=== PATIENT | female | born 1995 | race Caucasian/White ===

== ENCOUNTER 2017-07-14 05:20 | Inpatient (IN) | END 2017-07-17 14:00 | disposition home or self-care (01) | DRG 775 ==

== ENCOUNTER 2018-05-28 16:38 | Emergency (ER) | payer MEDICAID ==
[~2018-05-28] VITALS: Ht 152.4 cm; Wt 72.0 kg
[~2018-05-28 16:38] MED LIST: PREN-19 PO
[2018-05-28 16:39] VITALS: BP 127/90; PULSE 110; RESP 16; Ht 152.4 cm; Wt 72.0 kg
[2018-05-28] MEDS ORDERED: PRED20TA PO (18:10)
[2018-05-28] MEDS ORDERED: ACYC400T2 PO (18:10)
--- NOTE | 2018-05-28 18:14 | ERD ---
ER Documentation Chief Complaint Chief Complaint RT SIDE OF FACE NUMBNESS CANNOT COMPLETELY CLOSE RT EYE. HPI Very pleasant 23-year-old female with no past medical history presents emergency room 24 hours of symptoms of right facial droop. The patient has a facial paralysis on the right side of her face including the forehead. The patient has loss of taste sensation to the right side of her tongue. Patient denies any headache or vision changes, no recent travel or insect bites. She denies any slurred speech or motor weakness, no ataxic gait. ROS All systems reviewed and are negative except as per history of present illness. Medications Home Meds Active Scripts Prednisone* (Prednisone*) 20 Mg Tab, 60 MG PO DAILY for 7 Days, TAB Prov:FRANNIE CASTELLANO MD 05/28/18 Acyclovir* (Acyclovir*) 400 Mg Tablet, 400 MG PO 5 TIMES DAILY for 10 Days, TAB Prov:FRANNIE CASTELLANO MD 05/28/18 Reported Medications Vit #76/Iron,Carb/FA (Prenatabs Rx Tablet) 1 Each Tablet, 1 EACH PO DAILY, TAB 07/14/17 Allergies Allergies: Coded Allergies: No Known Allergy (Unverified , 07/14/17) PMhx/Soc Medical and Surgical Hx: pt denies Medical Hx, pt denies Surgical Hx Hx Neurological Disorder: Yes (RT SIDE OF FACE NUMBNESS A&OX4. NEURO INTACT) Hx Alcohol Use: No Hx Substance Use: No Hx Tobacco Use: No Smoking Status: Never smoker FmHx Family History: No diabetes Physical Exam Vitals Vital Signs Date Temp Pulse Resp B/P (MAP) Pulse Ox O2 O2 Flow FiO2 Time Delivery Rate 05/28/18 98.8 110 16 127/90 99 16:39 (102) Physical Exam General: Well developed, well nourished, no acute distress Head: Normocephalic, atraumatic. Eyes: Pupils equally reactive, EOM intact ENT: Moist mucous membranes Neck: Supple, no lymphadenopathy Respiratory: Lungs clear bilaterally, no distress Cardiovascular: RRR, no murmurs, rubs, or gallops Abdominal: Soft, non-tender, non-distended, no peritoneal signs : Deferred MSK: No edema, no unilateral swelling, 5/5 strength Neurologic: The patient has a right-sided facial droop including the forehead. She is unable to fully close her right eye. Patient sensation appears to be intact. Rapid alternating movements are normal, no tongue deviation, normal rapid alternating movements, steady gait. 5 out of 5 strength to all 4 extremities. 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 The patient exhibits no signs or symptoms concerning for central process. She has no risk factors for central process and does not warrant advanced imaging. Treatment with steroids and antivirals given the patient's House-Brackman grade would be appropriate. She was advised to keep her right eye lubricated given difficulty closing the right eye. Outpatient follow-up with primary care physician and neurologist as needed were discussed. The patient does not have an identifiable emergent medical condition that warrants inpatient hospitalization at this time. The patient is deemed safe for discharge with outpatient follow-up. We discussed follow up with the patient's primary care doctor within 24 to 48 hours as needed. We also discussed return to the emergency room for worsening symptoms or worsening condition. Outpatient referral: None required Discharge Medications: Prednisone, acyclovir Departure Diagnosis: Primary Impression: Wilson's palsy Condition: Stable Patient Instructions: Wilson's Palsy Referrals: [facility] YOU HAVE RECEIVED A MEDICAL SCREENING EXAM AND THE RESULTS INDICATE THAT YOU DO NOT HAVE A CONDITION THAT REQUIRES URGENT TREATMENT IN THE EMERGENCY DEPARTMENT. FURTHER EVALUATION AND TREATMENT OF YOUR CONDITION CAN WAIT UNTIL YOU ARE SEEN IN YOUR DOCTORS OFFICE WITHIN THE NEXT 1-2 DAYS. IT IS YOUR RESPONSIBILITY TO MAKE AN APPOINTMENT FOR FOLOW-UP CARE. IF YOU HAVE A PRIMARY DOCTOR --you should call your primary doctor and schedule an appointment IF YOU DO NOT HAVE A PRIMARY DOCTOR YOU CAN CALL OUR PHYSICIAN REFERRAL HOTLINE AT IF YOU CAN NOT AFFORD TO SEE A PHYSICIAN YOU CAN CHOSE FROM THE FOLLOWING [facility] [address] [facility] [address] [facility] [address] [facility] [address] [facility] [address] [facility] [address] [facility]. [facility] YOU HAVE RECEIVED A MEDICAL SCREENING EXAM AND THE RESULTS INDICATE THAT YOU DO NOT HAVE A CONDITION THAT REQUIRES URGENT TREATMENT IN THE EMERGENCY DEPARTMENT. FURTHER EVALUATION AND TREATMENT OF YOUR CONDITION CAN WAIT UNTIL YOU ARE SEEN IN YOUR DOCTORS OFFICE WITHIN THE NEXT 1-2 DAYS. IT IS YOUR RESPONSIBILITY TO MAKE AN APPOINTMENT FOR FOLOW-UP CARE. IF YOU HAVE A PRIMARY DOCTOR --you should call your primary doctor and schedule and appointment IF YOU DO NOT HAVE A PRIMARY DOCTOR YOU CAN CALL OUR PHYSICIAN REFERRAL HOTLINE AT . IF YOU CAN NOT AFFORD TO SEE A PHYSICIAN YOU CAN CHOSE FROM THE FOLLOWING [facility] INSTITUTIONS: [facility] [address] [place] [address] [facility] [address] [place] [address] [facility] [address] [place] [address] Additional Instructions: Call your primary care doctor TOMORROW for an appointment during the next 1 WEEK.Tell the executive secretary that you were referred from this facility.See the doctor sooner or return here if your condition worsens before your appointment time. FRANNIE CASTELLANO MD May 28, 2018 18:14
== END 2018-05-28 18:18 | disposition home or self-care (01) ==
LOC: E/R 16:38
DX: G51.0 Bell's palsy (principal)
CPT/HCPCS: 99283